=== PATIENT | male | born 1970 | race Caucasian/White ===

== ENCOUNTER 2017-05-13 14:04 | Observation (INO) | payer OTHER ==
[~2017-05-13] VITALS: Ht 172.7 cm; Wt 75.9 kg
[~2017-05-13 14:04] MED LIST: AUGMENTIN875 MG PO; Asmanex Twisthaler 2 IH; CIPRO500 MG PO; CITALOPRAM HBR40 M1 PO; EPZICOM1 TABLET PO; FLEXERIL10 MG PO; HYDROCHLOROTHIAZIDE; Humibid LA,Mucinex PO; K-PHOS NEUTRAL250 M1 PO; LISINOPRIL10 MG PO; NEURONTIN300 MG PO; NEURONTIN600 MG PO; NORVASC10 MG PO; NORVIR100 M1 PO; NORVIR100 MG PO; Norvasc PO; OXYCODONE HCL5 MG PO; OXYCODONE10 MG PO; OXYCONTIN30 MG PO; PAROXETINE HCL40 MG PO; PHOSPHA250 MG PO; PREZISTA400 MG PO; SOMA350 M1 PO; STRATTERA25 MG PO; TRUVADA1 TABLET PO; Tylenol Regular Stre PO; VYVANSE70 MG PO
[2017-05-13 15:56] LABS: HEMATOCRIT 41.9 % (38.0-50.0); MCH 33.2 PG (29.0-34.0); MCHC 34.4 G/DL (30.0-36.0); MCV 96.5 FL (86-99); MEAN PLAT.VOLUME 8.6 uM^3 (9.0-12.4); PLATELET COUNT 309 K/uL (156-360); RBC DIS.WIDTH-CV 13.1 % (11.8-14.6); RBC DIS.WIDTH-SD 46.7 % (39-53); RED BLOOD COUNT 4.34 M/uL (4.00-5.50); WHITE BLOOD COUNT 10.3 K/uL (4.1-10.2)
[2017-05-13 16:04] LABS: CHLORIDE 104 mEq/L (99-109); POTASSIUM 4.3 mEq/L (3.7-5.4); SODIUM 138 mEq/L (136-147)
[2017-05-13 16:06] LABS: GLUCOSE 91 mg/dL (70-99)
[2017-05-13 16:07] LABS: ANION GAP 7 MEQ/L (2-14)
[2017-05-13 16:10] LABS: GFR ESTIMATE (CALCULATED) > 59 mL/min/
[2017-05-13 16:11] LABS: UREA NITROGEN (BUN) 13 mg/dL (9-23)
[2017-05-13] MEDS ORDERED: PREZCOBIX 8001 EACH PO (16:15)
[2017-05-13] MEDS ORDERED: ERGOCALCIF50000 UNIT PO (16:16)
[2017-05-13] MEDS ORDERED: ALEVE220 MG PO (16:16)
[2017-05-13 18:10] LABS: CREATINE KINASE 341 IU/L (1-294); TOTAL CK 341 IU/L (1-294)
[2017-05-13 18:16] LABS: CK-MB 7.3 ng/mL (0.0-4.9)
[2017-05-13 18:50] LABS: C-REACTIVE PROTEIN 2.3 MG/L (0-10)
[2017-05-13 19:45] VITALS: BP 120/91
[2017-05-14] VITALS: BP 130/84
[2017-05-14 04:18] LABS: ADD MIUA? YES; BILIRUBIN NEGATIVE; BLOOD SMALL; COLOR YELLOW ((YELLOW)); GLUCOSE (STRIP) NEGATIVE; KETONES NEGATIVE; LEUKOCYTES NEGATIVE; NITRITE NEGATIVE; PROTEIN (STRIP) NEGATIVE; SPECIFIC GRAVITY 1.012 (1.000-1.030); UROBILINOGEN 0.2 MG/DL (0.2-1.0)
[2017-05-14 04:19] LABS: BACTERIA NONE SEEN /HPF; EPITHELIAL CELLS NONE SEEN /HPF; MUCUS TRACE /LPF; RED BLOOD CELLS 0-5 /HPF (0-5); UCUL ADDED? NO; WHITE BLOOD CELLS 0-5 /HPF (0-5)
[2017-05-14 04:54] VITALS: BP 121/72
[2017-05-14 05:55] LABS: HEMATOCRIT 41.2 % (38.0-50.0); MCH 34.4 PG (29.0-34.0); MCV 98.6 FL (86-99); MEAN PLAT.VOLUME 8.9 uM^3 (9.0-12.4); PLATELET COUNT 315 K/uL (156-360); RBC DIS.WIDTH-CV 13.6 % (11.8-14.6); RBC DIS.WIDTH-SD 49.4 % (39-53); RED BLOOD COUNT 4.18 M/uL (4.00-5.50); WHITE BLOOD COUNT 8.3 K/uL (4.1-10.2)
[2017-05-14 06:20] LABS: ANION GAP 7 MEQ/L (2-14); CHLORIDE 108 MEQ/L (99-109); GFR ESTIMATE (CALCULATED) > 59 mL/min/; GLUCOSE 103 mg/dL (70-99); POTASSIUM 4.1 MEQ/L (3.7-5.4); SAMPLE HEMOLYSIS CHECK 0; SAMPLE ICTERIC CHECK 0; SAMPLE LIPEMIA CHECK 0; SODIUM 141 MEQ/L (136-147); UREA NITROGEN (BUN) 12 mg/dL (9-23)
[2017-05-14 07:45] VITALS: BP 127/85
[2017-05-14 11:15] VITALS: BP 138/59
[2017-05-15 12:34] LABS: HIV INDEX 39.41; HIV-1/2 AB/AG COMBO REACTIVE
[2017-05-15 13:28] LABS: HIV RNA QUANT LOG10 RESULT < 1.30 Log(10) (<1.30); HIV RNA QUANT VIRAL LOAD < 20 copy/mL (<20)
[2017-05-15 20:17] LABS: ACETYLCHOLINE RECP BIND ABY+ <0.30 nmol/L (<=0.30)
== END 2017-05-14 14:00 | disposition left against medical advice (07) ==
LOC: EME 14:04 → EDOF 16:53 → ENRESERV 16:58 → 5WEST 19:28 → ENPENDDIS 05-14 → 5WEST 05-14 14:00
PROVIDERS: Emergency Medicine; Internal Medicine; Psychiatry & Neurology Clinical Neurophysiology
DX: R53.1 Weakness (principal); B20 Human immunodeficiency virus [HIV] disease; G62.9 Polyneuropathy, unspecified; R29.2 Abnormal reflex; Z80.52 Family history of malignant neoplasm of bladder; Z80.1 Family history of malignant neoplasm of trachea, bronchus and lung; Z83.3 Family history of diabetes mellitus; Z88.2 Allergy status to sulfonamides
CPT/HCPCS: 70553; 71020; 80048; 81003; 82085 90; 82550; 82553; 84238 90; 85027; 85651; 86038; 86140; 86701 90; 86702 90; 86703; 87040; 87536; 93005; 99281; 99285; G0378; J1650

== ENCOUNTER → 2017-06-09 | Outpatient (CLI) | payer OTHER ==
[~2017-06-09] MED LIST changes: +ALEVE220 MG PO; +CYANOCOBALAM1000 MCG SL; +DEXAMETHASONE1 MG PO; +ERGOCALCIF50000 UNIT PO; +PAXIL40 MG PO; +PREZCOBIX 8001 EACH PO
== END | disposition home or self-care (01) ==
LOC: CDC 09:40
DX: Z01.810 Encounter for preprocedural cardiovascular examination (principal); M54.12 Radiculopathy, cervical region
CPT/HCPCS: 93000

== ENCOUNTER 2017-06-10 10:46 | Day surgery (SDC) | payer OTHER ==
[~2017-06-10] VITALS: Ht 170.2 cm; Wt 74.0 kg
[2017-06-10 11:08] VITALS: BP 117/82
[2017-06-10 22:15] VITALS: BP 117/77
[2017-06-10 23:53] VITALS: BP 107/62
[2017-06-11 04:17] VITALS: BP 114/75
[2017-06-11 07:52] VITALS: BP 118/71
== END 2017-06-11 12:24 | disposition home or self-care (01) ==
LOC: SDC 10:46 → 2SOUTH 17:21 → ENRESERV 18:18 → 2SOUTH 19:00 → SDC 19:00 → 3EAST 19:00 → 2SOUTH 19:00 → ENRESERV 20:02 → 2SOUTH 20:20 → 3EAST 20:20
DX: M50.01 Cervical disc disorder with myelopathy, high cervical region (principal); M47.22 Other spondylosis with radiculopathy, cervical region; M47.12 Other spondylosis with myelopathy, cervical region; M50.13 Cervical disc disorder with radiculopathy, cervicothoracic region; M25.78 Osteophyte, vertebrae; M48.02 Spinal stenosis, cervical region; R39.15 Urgency of urination; G56.12 Other lesions of median nerve, left upper limb; G56.22 Lesion of ulnar nerve, left upper limb; Z88.2 Allergy status to sulfonamides; I10 Essential (primary) hypertension; J45.909 Unspecified asthma, uncomplicated; K21.9 Gastro-esophageal reflux disease without esophagitis; F17.210 Nicotine dependence, cigarettes, uncomplicated; Z21 Asymptomatic human immunodeficiency virus [HIV] infection status
CPT/HCPCS: 72020; 76000; 95938; C1713; G0378; J0690; J1100; J1170; J2250; J2270; J2405; J3010; J3480

== ENCOUNTER 2017-08-29 23:53 | Emergency (ER) | payer OTHER ==
[~2017-08-29] VITALS: Ht 170.2 cm; Wt 79.4 kg
[2017-08-30 00:48] LABS: HEMATOCRIT 39.9 % (38.0-50.0); MCH 32.5 PG (29.0-34.0); MCHC 34.1 G/DL (30.0-36.0); MCV 95.2 FL (86-99); MEAN PLAT.VOLUME 8.3 uM^3 (9.0-12.4); PLATELET COUNT 320 K/uL (156-360); RBC DIS.WIDTH-CV 13.1 % (11.8-14.6); RBC DIS.WIDTH-SD 46.3 % (39-53); RED BLOOD COUNT 4.19 M/uL (4.00-5.50)
[2017-08-30 01:05] LABS: CHLORIDE 105 mEq/L (99-109); POTASSIUM 3.4 mEq/L (3.7-5.4); SODIUM 140 mEq/L (136-147)
[2017-08-30 01:07] LABS: GLUCOSE 162 mg/dL (70-99)
[2017-08-30 01:09] LABS: ANION GAP 10 MEQ/L (2-14)
[2017-08-30 01:10] LABS: SERUM ETHYL ALCOHOL < 10 mg/dL
[2017-08-30 01:11] LABS: GFR ESTIMATE (CALCULATED) > 59 mL/min/ (58.99-99999)
[2017-08-30 01:13] LABS: UREA NITROGEN (BUN) 17 mg/dL (9-23)
[2017-08-30 01:14] LABS: SALICYLATE < 5.0 MG/DL (15-30)
[2017-08-30 02:06] LABS: ADD MEDTOX COMMENT Y; AMPHETAMINE PRESUMPTIVE POSITIVE (500 ng/mL); BARBITURATES NEGATIVE (200 ng/mL); BENZODIAZEPINES PRESUMPTIVE POSITIVE (150 ng/mL); COCAINE NEGATIVE (150 ng/mL); INTERNAL CONTROLS VALID? YES; METHADONE NEGATIVE (200 ng/mL); METHAMPHETAMINE NEGATIVE (500 ng/mL); OPIATES (MORPHINE) PRESUMPTIVE POSITIVE (100 ng/mL); OXYCODONE NEGATIVE (100 ng/mL); PHENCYCLIDINE NEGATIVE (25 ng/mL); PROPOXYPHENE NEGATIVE (300 ng/mL); THC CANNABINOIDS NEGATIVE (50 ng/mL); TRICYCLIC ANTIDEPRESSANTS NEGATIVE (300 ng/mL)
[2017-08-30 02:32] LABS: BENZODIAZEPINES, URINE SCREEN POSITIVE (200 ng/mL)
[2017-08-30] MEDS ORDERED: NARCAN4 MG NS (03:49)
[2017-08-30 04:23] VITALS: BP 109/86
== END 2017-08-30 04:25 | disposition home or self-care (01) ==
LOC: EME 23:53
PROVIDERS: Emergency Medicine
DX: T40.1X1A Poisoning by heroin, accidental (unintentional), initial encounter (principal); K21.9 Gastro-esophageal reflux disease without esophagitis; I10 Essential (primary) hypertension; F32.9 Major depressive disorder, single episode, unspecified; J45.909 Unspecified asthma, uncomplicated; Z87.442 Personal history of urinary calculi; F10.10 Alcohol abuse, uncomplicated; Z88.2 Allergy status to sulfonamides; F17.200 Nicotine dependence, unspecified, uncomplicated
CPT/HCPCS: 71010; 80048; 84999; 85027; 93005; G0480; J2310; J2405